=== PATIENT | male | born 1975 | race Caucasian/White ===

== ENCOUNTER 2023-05-07 17:13 | Emergency (ER) | payer BC, SELFPAY ==
--- NOTE | 2023-05-07 17:15 | DI.RAD_ITS ---
Exam(s) XR SHOULDER RT COMPLETE 2+V EXAM: XR SHOULDER RT COMPLETE 2+V CLINICAL HISTORY: injury. TECHNIQUE: 2D digital imaging was performed of the right shoulder. Five images were obtained. AP, Grashey, Y-view and axillary views were obtained. COMPARISON: No exams were available for comparison FINDINGS: BONES: No acute fracture is present. No bony destructive lesion is seen. JOINTS: There is a type 3 acromioclavicular joint separation. The glenohumeral joint is unremarkable . SOFT TISSUE: Normal. IMPRESSION: Type 3 AC joint separation. DATA REPOSITORY: RADIATION DOSE DELIVERED:
[2023-05-07 17:21] VITALS: BP 117/65; PULSE 74; RESP 16; TEMP 37.1; O2SAT 100
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
[2023-05-07 19:12] VITALS: PULSE 75; O2SAT 98
== END 2023-05-07 19:21 | disposition home or self-care (01) ==
PROVIDERS: Emergency Provider Emergency Medicine Emergency Medical Services
DX: S43.101A Unspecified dislocation of right acromioclavicular joint, initial encounter (principal); V19.3XXA Pedal cyclist (driver) (passenger) injured in unspecified nontraffic accident, initial encounter
CPT/HCPCS: 99283; 73030